=== PATIENT | male | born 1950 | race African-American/Black ===

== ENCOUNTER 2019-10-28 10:25 | Inpatient (IN) | payer OTHER, MEDICARE ==
[2019-10-28] MEDS ORDERED: INSULIN -REGULAR HUMAN 50 UNIT/0.5 ML ML ONE ×2 (11:08→12:42)
[2019-10-28] MEDS ORDERED: NA CHLORIDE 0.9% 1,000 ML ONE ×3 (11:09→17:19)
[2019-10-28 11:10] LABS: Absolute Lymphocytes (CBC) 1.2 K/uL (0.7-4.9); Basophils % 0.9 % (0-1.3); Hematocrit 40.8 % (39.6-49.0); Lymphocytes % 17.6 % (15.3-44.8); MPV 10.1 fL (7.6-11.3); RBC Red Blood Cell Count 4.65 M/uL (4.33-5.43)
[2019-10-28 12:19] LABS: ALT/SGPT 37 U/L (12-78); AST/SGOT 15 U/L (15-37); Albumin 3.2 g/dL (3.4-5.0); Alkaline Phosphatase 72 U/L (45-117); BUN Blood Urea Nitrogen 46 mg/dL (7-18); Bilirubin Direct < 0.1 mg/dL (0-0.2); Bilirubin Total 0.4 mg/dL (0.2-1.0); Glucose Level 738 mg/dL (74-106); Lipase 410 U/L (73-393); Magnesium 2.9 mg/dL (1.8-2.4); Potassium 5.5 mmol/L (3.5-5.1); Protein, Total 7.4 g/dL (6.4-8.2); Sodium Level 134 mmol/L (136-145); Troponin (Emerg Dept Use Only) < 0.02 ng/mL (0.0-0.045)
[2019-10-28 12:21] LABS: Bicarbonate 12 mmol/L (21-32)
[2019-10-28 12:59] LABS: Urine Blood NEGATIVE (NEG); Urine Glucose 2+ (NEG); Urine Protein NEGATIVE (NEG); Urine Specific Gravity 1.005 (1.005-1.030)
[2019-10-28] MEDS ORDERED: INSULIN -REGULAR HUMAN 100 UNIT in NA CHLORIDE 0.9% 100 ML IV SCH (13:00)
--- NOTE | 2019-10-28 13:15 | ER ---
Nurse's Notes [facility] Name: Reid Mccormick Age: 68 yrs Sex: Male : 1950 Arrival Date: 10/28/2019 Time: 10:28 Bed 18 Private MD: Diagnosis: Diabetes mellitus due to underlying condition with ketoacidosis without coma;Acute kidney failure Presentation: 10/28 10:35 Presenting complaint: Patient states: "I wasn't feeling well yesterday just really aa5 tired and my blood sugar was 640 so I don't know what triggered it". pt denies recent illness. 10:35 Transition of care: patient was not received from another setting of care. Onset of aa5 symptoms was October 28, 2019. Risk Assessment: Do you want to hurt yourself or someone else? Patient reports no desire to harm self or others. Initial Sepsis Screen: Does the patient meet any 2 criteria? No. Patient's initial sepsis screen is negative. Does the patient have a suspected source of infection? No. Patient's initial sepsis screen is negative. Care prior to arrival: None. 10:35 Acuity: VINCENT 2 aa5 10:35 Method Of Arrival: Ambulatory aa5 Historical: - Allergies: 10:37 Iodine; aa5 - Home Meds: 15:17 aspirin 81 mg Oral chew 1 tab once daily [Active]; Fish Oil 500 mg oral cpDR [Active]; tw2 magnesium oxide 400 mg Oral cap [Active]; Januvia 50 mg oral tab 1 tabs [Active]; carvedilol 25 mg oral tab 1 tab 2 times per day [Active]; clonidine HCl 0.2 mg Oral tab 1 tab 3 times per day [Active]; losartan 50 mg oral tab 1 tab once daily [Active]; amlodipine 10 mg tab 1 tab once daily [Active]; levothyroxine 50 mcg tab 1 tab once daily [Active]; Vitamin D vitamin d3 125 mcg PO daily Oral [Active]; losartan 50 mg oral tab 1 tab once daily [Active]; hydralazine 25 mg Oral tab 1 tab [Active]; - PMHx: 10:37 Diabetes - NIDDM; Hypertension; aa5 15:17 Hypothyroidism; tw2 - PSHx: 10:37 knee replacement; aa5 - Immunization history:: Flu vaccine is up to date. - Social history:: Smoking status: Patient denies any tobacco usage or history of. - Ebola Screening: : No symptoms or risks identified at this time. Screenin:42 Abuse screen: Denies threats or abuse. Nutritional screening: No deficits noted. tw2 Tuberculosis screening: No symptoms or risk factors identified. Fall Risk None identified. Assessment: 10:40 General: Appears in no apparent distress. Behavior is calm, cooperative, appropriate tw2 for age. General: Smells of ketones. Pain: Denies pain. Neuro: Level of Consciousness is awake, alert, obeys commands, Oriented to person, place, time, situation. Cardiovascular: Heart tones S1 S2 Patient's skin is warm and dry. Respiratory: Airway is patent Respiratory effort is even, unlabored, Respiratory pattern is regular, symmetrical, Breath sounds are clear bilaterally. GI: No signs and/or symptoms were reported involving the gastrointestinal system. Abdomen is round non-distended, obese, Bowel sounds present X 4 quads. : No signs and/or symptoms were reported regarding the genitourinary system. EENT: Reports "dry mouth and lips and i am so thirsty.". 10:40 Musculoskeletal: Range of motion: intact in all extremities. tw2 10:40 Derm: No signs and/or symptoms reported regarding the dermatologic system. tw2 12:20 Reassessment: Patient appears in no apparent distress at this time. No changes from tw2 previously documented assessment. Patient and/or family updated on plan of care and expected duration. Pain level reassessed. Patient is alert, oriented x 3, equal unlabored respirations, skin warm/dry/pink. 13:38 Reassessment: Patient appears in no apparent distress at this time. No changes from tw2 previously documented assessment. Patient and/or family updated on plan of care and expected duration. Pain level reassessed. Patient is alert, oriented x 3, equal unlabored respirations, skin warm/dry/pink. 14:40 Reassessment: Patient appears in no apparent distress at this time. No changes from tw2 previously documented assessment. Patient and/or family updated on plan of care and expected duration. Pain level reassessed. Patient is alert, oriented x 3, equal unlabored respirations, skin warm/dry/pink. 15:46 Reassessment: Patient appears in no apparent distress at this time. No changes from tw2 previously documented assessment. Patient and/or family updated on plan of care and expected duration. Pain level reassessed. Patient is alert, oriented x 3, equal unlabored respirations, skin warm/dry/pink. 10/29 11:55 Reassessment: Called report to PRITESH Maharaj. Information from the SBAR was given. All rb1 questions asked and answered. Vital Signs: 10/28 10:38 BP 132 / 86; Pulse 78; Resp 18 S; Temp 97.9(O); Pulse Ox 98% on R/A; Weight 109.77 kg aa5 (R); Height 6 ft. 1 in. (185.42 cm) (R); Pain 0/10; 11:43 BP 139 / 67; Pulse 75; Resp 19; Pulse Ox 99% on R/A; tw2 12:21 BP 153 / 82; Pulse 72; Resp 17; Pulse Ox 100% on R/A; tw2 13:38 BP 158 / 76; Pulse 77; Resp 17; Pulse Ox 100% on R/A; tw2 14:40 BP 145 / 73; Pulse 76; Resp 17; Pulse Ox 99% on R/A; tw2 15:44 BP 149 / 65; Pulse 72; Resp 17; Pulse Ox 99% on R/A; tw2 10:38 Body Mass Index 31.93 (109.77 kg, 185.42 cm) aa5 ED Course: 10:28 Patient arrived in ED. ag5 10:36 Arm band placed on. aa5 10:38 Triage completed. aa5 10:40 Margareth Mesa RN is Primary Nurse. tw2 10:40 Arnoldo Cleveland PA is PHCP. cp 10:40 Jose Maria Flynn MD is Attending Physician. cp 10:40 Bed in low position. Call light in reach. Adult w/ patient. campus monitor on. Pulse tw2 ox on. NIBP on. 10:58 Initial lab(s) drawn, by me, sent to lab. Inserted saline lock: 18 gauge in right dh3 forearm, using aseptic technique. Blood collected. 11:26 Lab(s) recollected, by me, sent to lab[facility] 11:54 EKG done, by educational technician. reviewed by Jose Maria Flynn MD. tc 12:23 Notified Nurse Practitioner and/or Physician Embroidery Finisher of a critical lab result(s), CO2 hb 12, GLUC 738. 12:47 Urine collected: clean catch specimen, clear. dh3 13:07 Inserted saline lock: 18 gauge in left antecubital area, using aseptic technique. 3 13:13 Anjel Angelo MD is Hospitalizing Provider. cp 15:46 No provider procedures requiring assistance completed. Patient admitted, IV remains in tw2 place. 10/29 06:46 Primary Nurse role handed off by Margareth Mesa RN eb 11:53 Ana Luisa Connelly, PRITESH is Primary Nurse. rb1 11:55 No provider procedures requiring assistance completed. rb1 12:40 Patient admitted, IV remains in place. rb1 Administered Medications: 10/28 11:12 Drug: NS 0.9% 500 ml Route: IV; Rate: bolus; Site: right hand; tw2 12:07 Follow up: Response: No adverse reaction; IV Status: Completed infusion; IV Intake: tw2 500ml 11:12 Drug: Insulin Regular Human 10 units {Co-Signature: tw2 (Margareth Mesa RN).} Route: IVP; hb Site: right hand; 12:06 Follow up: Response: No adverse reaction; Blood sugar is unchanged tw2 12:07 Drug: NS 0.9% 500 ml Route: IV; Rate: 500 ml/hr; Site: right hand; tw2 12:49 Follow up: Rate change bolus; per HUSSAIN Adamson vo at this time. tw2 15:48 Follow up: IV Status: Completed infusion; IV Intake: 500ml tw2 12:45 Drug: Insulin Regular Human 10 units {Co-Signature: tw2 (Margareth Mesa RN).} Route: IVP; aj1 Site: right hand; 13:36 Follow up: Response: No adverse reaction; Blood sugar is unchanged tw2 12:46 Drug: NS 0.9% 1000 ml Route: IV; Rate: 250 ml/hr; Site: right hand; tw2 15:47 Follow up: IV Status: Infusion continued upon admission tw2 13:16 Drug: Insulin Drip - (Insulin Regular Human 100 units, NS 0.9% 100 ml) {Co-Signature: tw aj (Cat Roberts RN).} Route: IV; Rate: 10 units/hr; Site: right hand; 15:47 Follow up: IV Status: Infusion continued upon admission tw2 Point of Care Testing: Blood Glucose: 13:37 Blood Glucose: High (>450 mg/dL); tw2 10:38 High > 500mg/dL aa5 13:37 glucose level drawn at this time and sent to lab tw2 Ranges: Intake: 12:07 IV: 500ml; Total: 500ml. tw2 15:48 IV: 500ml; Total: 1000ml. tw2 Outcome: 13:14 Decision to Hospitalize by Provider. cp 15:46 Admitted to ER Hold. Please see [facility] for further documentation. tw2 15:46 Condition: stable 15:46 Instructed on the need for admit. 10/29 12:40 Admitted to Med/surg accompanied by tech, family with patient, via stretcher, room 207, rb1 with chart, Report called to PRITESH Maharaj Condition: stable Instructed on the need for admit. 12:44 Patient left the ED. hb Signatures: Cat Roberts, RN RN aj1 Ciera Simental, RN RN aa5 Carolina Barry, jira administrator EKG Ttc Arnoldo Cleveland PA PA cp Ana Luisa Connelly, RN RN rb1 Sondra Boykin RN RN Margareth Mesa, RN RN tw2 Selin Marin 3 Anita Licona Ajare [facility] Margareth Mesa RN tw2 Cat Roberts RN aj1 Corrections: (The following items were deleted from the chart) 10/28 13:04 10:40 EENT: Reports "dry mouth and lips and i am so thirsty.". tw2 tw2
--- NOTE | 2019-10-28 13:15 | EDPHYS ---
Physician Documentation [facility] Name: Reid Mccormick Age: 68 yrs Sex: Male : 1950 Arrival Date: 10/28/2019 Time: 10:28 Bed 18 Private MD: ED Physician Jose Maria Flynn HPI: 10/28 10:51 This 68 yrs old Black Male presents to ER via Ambulatory with complaints of High Blood cp Sugar. 10:51 The patient or guardian reports generalized fatigue, hyperglycemia, that was cp potentially precipitated by no particular event. Onset: The symptoms/episode began/occurred yesterday. Associated signs and symptoms: Pertinent negatives: chest pain, abdominal pain, fever. Current symptoms: In the emergency department the patient's symptoms are unchanged from the initial presentation, despite home interventions. The patient has been recently seen by a physician: Dr. Singer yesterday, with similar presenting complaints, lab tests were done, and was sent to the [facility] Emergency Department for further evaluation. Historical: - Allergies: 10:37 Iodine; aa5 - Home Meds: 15:17 aspirin 81 mg Oral chew 1 tab once daily [Active]; Fish Oil 500 mg oral cpDR [Active]; tw2 magnesium oxide 400 mg Oral cap [Active]; Januvia 50 mg oral tab 1 tabs [Active]; carvedilol 25 mg oral tab 1 tab 2 times per day [Active]; clonidine HCl 0.2 mg Oral tab 1 tab 3 times per day [Active]; losartan 50 mg oral tab 1 tab once daily [Active]; amlodipine 10 mg tab 1 tab once daily [Active]; levothyroxine 50 mcg tab 1 tab once daily [Active]; Vitamin D vitamin d3 125 mcg PO daily Oral [Active]; losartan 50 mg oral tab 1 tab once daily [Active]; hydralazine 25 mg Oral tab 1 tab [Active]; - PMHx: 10:37 Diabetes - NIDDM; Hypertension; aa5 15:17 Hypothyroidism; tw2 - PSHx: 10:37 knee replacement; aa5 - Immunization history:: Flu vaccine is up to date. - Social history:: Smoking status: Patient denies any tobacco usage or history of. - Ebola Screening: : No symptoms or risks identified at this time. ROS: 10:55 Constitutional: Positive for fatigue, Negative for body aches, chills, fever, poor PO cp intake. 10:55 Eyes: Negative for injury, pain, redness, and discharge. cp 10:55 ENT: Negative for drainage from ear(s), ear pain, sore throat, difficulty swallowing, difficulty handling secretions. 10:55 Cardiovascular: Negative for chest pain, edema, palpitations. 10:55 Respiratory: Negative for cough, shortness of breath, wheezing. 10:55 Abdomen/GI: Negative for abdominal pain, vomiting, diarrhea, constipation, black/tarry stool, rectal bleeding. 10:55 : Negative for urinary symptoms, penile discharge, testicular pain 10:55 Skin: Negative for rash. 10:55 Neuro: Negative for altered mental status, headache, weakness. 10:55 All other systems are negative. Exam: 11:10 Constitutional: The patient appears in no acute distress, alert, awake, cp non-diaphoretic, non-toxic, well developed, well nourished. 11:10 Head/Face: Normocephalic, atraumatic. cp 11:10 Eyes: Pupils equal round and reactive to light, extra-ocular motions intact. Lids and cp lashes normal. Conjunctiva and sclera are non-icteric and not injected. Cornea within normal limits. Periorbital areas with no swelling, redness, or edema. ENT: Nares patent. No nasal discharge, no septal abnormalities noted. Tympanic membranes are normal and external auditory canals are clear. Oropharynx with no redness, swelling, or masses, exudates, or evidence of obstruction, uvula midline. Mucous membranes moist. Chest/axilla: Normal chest wall appearance and motion. Nontender with no deformity. No lesions are appreciated. Cardiovascular: Regular rate and rhythm with a normal S1 and S2. No gallops, murmurs, or rubs. Normal PMI, no JVD. No pulse deficits. Respiratory: Lungs have equal breath sounds bilaterally, clear to auscultation and percussion. No rales, rhonchi or wheezes noted. No increased work of breathing, no retractions or nasal flaring. Abdomen/GI: Soft, non-tender, with normal bowel sounds. No distension or tympany. No guarding or rebound. No evidence of tenderness throughout. Skin: Warm, dry with normal turgor. Normal color with no rashes, no lesions, and no evidence of cellulitis. Neuro: Awake and alert, GCS 15, oriented to person, place, time, and situation. Cranial nerves II-XII grossly intact. Motor strength 5/5 in all extremities. Sensory grossly intact. Cerebellar exam normal. Normal gait. 12:04 ECG was reviewed by the Attending Physician. Vital Signs: 10:38 BP 132 / 86; Pulse 78; Resp 18 S; Temp 97.9(O); Pulse Ox 98% on R/A; Weight 109.77 kg aa5 (R); Height 6 ft. 1 in. (185.42 cm) (R); Pain 0/10; 11:43 BP 139 / 67; Pulse 75; Resp 19; Pulse Ox 99% on R/A; tw2 12:21 BP 153 / 82; Pulse 72; Resp 17; Pulse Ox 100% on R/A; tw2 13:38 BP 158 / 76; Pulse 77; Resp 17; Pulse Ox 100% on R/A; tw2 14:40 BP 145 / 73; Pulse 76; Resp 17; Pulse Ox 99% on R/A; tw2 15:44 BP 149 / 65; Pulse 72; Resp 17; Pulse Ox 99% on R/A; tw2 10:38 Body Mass Index 31.93 (109.77 kg, 185.42 cm) aa5 MDM: 10:42 Patient medically screened. 13:00 Data reviewed: vital signs, nurses notes, lab test result(s), EKG. 13:00 Test interpretation: by ED physician or midlevel provider: ECG. Counseling: I had a detailed discussion with the patient and/or guardian regarding: the historical points, exam findings, and any diagnostic results supporting the discharge/admit diagnosis, lab results, the need for further work-up and treatment in the hospital. Physician consultation: Anjel Angelo MD was called at 12:45, was contacted at 12:45, regarding admission, to the ICU, patient's condition. 10/28 10:47 Order name: Glucose, Ancillary Testing; Complete Time: 10:52 EDMS 10/28 10:52 Interpretation: Abnormal: GLUC,ANCIL > 500. 10/28 10:50 Order name: Basic Metabolic Panel; Complete Time: 12:23 cp 10/28 10:50 Order name: CBC with Diff; Complete Time: 11:29 10/28 11:30 Interpretation: Normal except: HGB 13.4; RDW 16.3; BETTY% 74.2. cp 10/28 10:50 Order name: LFT's; Complete Time: 12:23 cp 10/28 10:50 Order name: Magnesium; Complete Time: 12:23 cp 10/28 10:50 Order name: Troponin (emerg Dept Use Only); Complete Time: 12:23 cp 10/28 10:50 Order name: Lipase; Complete Time: 12:23 cp 10/28 10:50 Order name: Ketone, Serum; Complete Time: 12:23 cp 10/28 12:03 Interpretation: Abnormal: ACET SMALL. cp 10/28 10:50 Order name: Influenza Screen (a \T\ B); Complete Time: 11:29 cp 10/28 12:05 Order name: Glucose 2 10/28 12:16 Order name: Glucose, Ancillary Testing; Complete Time: 12:20 EDMN 10/28 12:21 Interpretation: Reviewed. 10/28 12:36 Order name: Urine Dipstick--Ancillary (enter results) 10/28 13:36 Order name: Glucose 2 10/28 13:50 Order name: Glucose, Ancillary Testing EDMN 10/28 13:55 Order name: Basic Metabolic Panel EDMN 10/28 13:55 Order name: Basic Metabolic Panel EDMN 10/28 13:55 Order name: Basic Metabolic Panel EDMN 10/28 13:55 Order name: Basic Metabolic Panel EDMN 10/28 13:55 Order name: CBC with Automated Diff EDMS 10/28 13:55 Order name: CBC with Automated Diff EDMS 10/28 13:55 Order name: CBC with Automated Diff EDMS 10/28 13:55 Order name: CBC with Automated Diff EDMS 10/28 13:55 Order name: Lipid Profile EDMS 10/28 13:55 Order name: Lipid Profile EDMS 10/28 13:55 Order name: Magnesium EDMS 10/28 13:55 Order name: Magnesium EDMS 10/28 13:55 Order name: Magnesium EDMS 10/28 13:55 Order name: Magnesium EDMS 10/28 13:57 Order name: Blood Culture EDMN 10/28 15:33 Order name: Glucose, Ancillary Testing EDMN 10/28 10:40 Order name: Accucheck Blood Glucose; Complete Time: 11:05 cp 10/28 10:50 Order name: EKG; Complete Time: 10:50 cp 10/28 10:50 Order name: Cardiac monitoring; Complete Time: 11:09 cp 10/28 13:55 Order name: CONS Diabetic Education Consul EDMN 10/28 13:55 Order name: CONS Pharmacy Consult EDMN 10/28 13:55 Order name: NPO EDMN 10/28 16:35 Order name: Glucose, Ancillary Testing EDMN 10/28 17:10 Order name: Hemoglobin A1c EDMN 10/28 17:28 Order name: Glucose, Ancillary Testing EDMN 10/28 17:42 Order name: Basic Metabolic Panel EDMN 10/28 18:27 Order name: Glucose, Ancillary Testing EDMN 10/28 19:27 Order name: Glucose, Ancillary Testing EDMN 10/28 20:34 Order name: Glucose, Ancillary Testing EDMN 10/28 21:46 Order name: Glucose, Ancillary Testing EDMN 10/28 23:37 Order name: Glucose, Ancillary Testing [facility] 10/28 23:40 Order name: Glucose, Ancillary Testing [facility] 10/29 00:44 Order name: Glucose, Ancillary Testing [facility] 10/29 01:41 Order name: Glucose, Ancillary Testing EDMN 10/29 02:42 Order name: Glucose, Ancillary Testing EDMN 10/29 03:50 Order name: Glucose, Ancillary Testing [facility] 10/29 04:47 Order name: Glucose, Ancillary Testing [facility] 10/29 05:42 Order name: Glucose, Ancillary Testing [facility] 10/29 06:51 Order name: Glucose, Ancillary Testing [facility] 10/29 07:51 Order name: LDL, Direct EDMN 10/29 08:06 Order name: Glucose, Ancillary Testing [facility] 10/29 11:47 Order name: Glucose, Ancillary Testing EDMN 10/28 10:50 Order name: EKG - Nurse/Tech; Complete Time: 12:49 cp 10/28 10:50 Order name: IV Saline Lock; Complete Time: 11:04 cp 10/28 10:50 Order name: Labs collected and sent; Complete Time: 11:04 cp 10/28 10:50 Order name: O2 Per Protocol; Complete Time: 11:04 cp 10/28 10:50 Order name: O2 Sat Monitoring; Complete Time: 11:05 cp EC:04 Rate is 75 beats/min. Rhythm is regular. VT interval is prolonged at 204 msec. QRS cp interval is prolonged at 140 msec. QT interval is normal. T waves are Inverted in leads aVL, aVR. Interpreted by me. Reviewed by me. Administered Medications: 11:12 Drug: NS 0.9% 500 ml Route: IV; Rate: bolus; Site: right hand; tw2 12:07 Follow up: Response: No adverse reaction; IV Status: Completed infusion; IV Intake: tw2 500ml 11:12 Drug: Insulin Regular Human 10 units {Co-Signature: tw2 (Margareth Mesa RN).} Route: IVP; hb Site: right hand; 12:06 Follow up: Response: No adverse reaction; Blood sugar is unchanged tw2 12:07 Drug: NS 0.9% 500 ml Route: IV; Rate: 500 ml/hr; Site: right hand; tw2 12:49 Follow up: Rate change bolus; per HUSSAIN Adamson vo at this time. tw2 15:48 Follow up: IV Status: Completed infusion; IV Intake: 500ml tw2 12:45 Drug: Insulin Regular Human 10 units {Co-Signature: tw2 (Margareth Mesa RN).} Route: IVP; aj1 Site: right hand; 13:36 Follow up: Response: No adverse reaction; Blood sugar is unchanged tw2 12:46 Drug: NS 0.9% 1000 ml Route: IV; Rate: 250 ml/hr; Site: right hand; tw2 15:47 Follow up: IV Status: Infusion continued upon admission tw2 13:16 Drug: Insulin Drip - (Insulin Regular Human 100 units, NS 0.9% 100 ml) {Co-Signature: tw2 aj1 (Cat Roberts RN).} Route: IV; Rate: 10 units/hr; Site: right hand; 15:47 Follow up: IV Status: Infusion continued upon admission tw2 Point of Care Testing: Blood Glucose: 13:37 Blood Glucose: High (>450 mg/dL); tw2 10:38 High > 500mg/dL aa5 13:37 glucose level drawn at this time and sent to lab tw2 Ranges: Critical Glucose Levels:Adult <50 mg/dl or >400 mg/dl <40 mg/dl or >180 mg/dl Disposition: 10/29 16:30 Co-signature as Attending Physician, Jose Maria Flynn MD I agree with the assessment and kdr plan of care. Disposition: 10/28/19 13:14 Hospitalization ordered by Anjel Angelo for Inpatient Admission. 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 - Bed requested for Telemetry/MedSurg (Inpatient). - Status is Inpatient Admission. hb - Condition is Stable. - Problem is new. - Symptoms have improved. UTI on Admission? No Signatures: Dispatcher [employer] EDMS Cat Roberts, PRITESH RN aj1 Jose Maria Flynn MD MD [facility] Ciera Simental RN RN aa5 Arnoldo Cleveland PA PA cp Sondra Boykin RN RN Margareth Mesa RN RN tw2 Og Garcia RN RN ja1 Anita Licona RN tw2 Cat Roberts RN aj1 Corrections: (The following items were deleted from the chart) 10/28 13:24 13:14 Hospitalization Ordered by Anjel Angelo MD for Inpatient Admission. Preliminary eb diagnosis is Diabetes mellitus due to underlying condition with ketoacidosis without coma; Acute kidney failure. Bed requested for Intensive Care Unit. Status is Inpatient Admission. Condition is Stable. Problem is new. Symptoms have improved. UTI on Admission? No. cp 17:34 13:24 10/28/2019 13:14 Hospitalization Ordered by Anjel Angelo MD for Inpatient eb Admission. 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 Bed requested for Intensive Care Unit. Status is Inpatient Admission. Condition is Stable. Problem is new. Symptoms have improved. UTI on Admission? No. eb 10/29 11:17 10/28 17:34 10/28/2019 13:14 Hospitalization Ordered by Anjel Angelo MD for Inpatient eb Admission. 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 Bed requested for [facility] ER HOLD. Status is Inpatient Admission. Condition is Stable. Problem is new. Symptoms have improved. UTI on Admission? No. eb 10/29 11:22 11:17 10/28/2019 13:14 Hospitalization Ordered by Anjel Angelo MD for Inpatient ja1 Admission. 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 Bed requested for Telemetry/MedSurg (Inpatient). Status is Inpatient Admission. Condition is Stable. Problem is new. Symptoms have improved. UTI on Admission? No. eb 12:44 11:22 10/28/2019 13:14 Hospitalization Ordered by Anjel Angelo MD for Inpatient hb Admission. 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 Bed requested for Telemetry/MedSurg (Inpatient). Status is Inpatient Admission. Condition is Stable. Problem is new. Symptoms have improved. UTI on Admission? No. ja1
[2019-10-28] MEDS ORDERED: ONDANSETRON 4 MG/2 ML VIAL IV PRN (13:46)
[2019-10-28] MEDS ORDERED: NA CHLORIDE 0.9% 1,000 ML IV ONE (13:46)
[2019-10-28] MEDS ORDERED: D5 0.45 NS 1,000 ML IV SCH (14:00)
[2019-10-28] MEDS: NA CHLORIDE 0.9% 1,000 ML IV SCH ×3 (14:00→19:42)
--- NOTE | 2019-10-28 14:31 | EKG ---
Test Date: 2019-10-28 Test Time: 11:48:05 Steam Shovel Runner: KIM MEASUREMENT RESULTS: Intervals: Rate: 75 IN: 204 QRSD: 140 QT: 424 QTc: 473 [employer] Sleep: P: 81 IN: 204 QRS: -78 T: 92 INTERPRETIVE STATEMENTS: Normal sinus rhythm Left axis deviation Intraventricular conduction delay Abnormal ECG No previous ECG available for comparison Electronically Signed On 10-28-19 14:29:39 LOG DECKMAN by Rene Snell
--- NOTE | 2019-10-28 14:45 | P.HP ---
Certification for Inpatient With expected LOS: <2 Midnights Practitioner: I am a practitioner with admitting privileges, knowledge of patient current condition, hospital course, and medical plan of care. Services: Services provided to patient in accordance with Admission requirements found in Title 42 Section 412.3 of the Code of Federal Regulations Patient History Date of Service: 10/28/19 Reason for admission: Hyperglycemia History of Present Illness: Mr. Mccormick is a 68-year-old male with a history of diabetes mellitus and hypertension who was seen by his PCP yesterday for generalized weakness. Patient's blood was drawn at that time and this morning, he was called by his PCP to present to the ER for abnormal lab. Patient reports generalized weakness and polyuria for the past few weeks. He denies any chest pain or shortness of breath. If he does not check his blood glucose at home. He is on oral hypoglycemic agents. Allergies iodine Allergy (Verified 10/28/19 12:57) UNK Home Medications: Amlodipine [Norvasc] 10 mg PO 10/28/19 Aspirin [Adult Aspirin Regimen] 81 mg PO 10/28/19 Cholecalciferol (Vitamin D3) [Vitamin D3] 125 mcg PO 10/28/19 Clonidine HCl [Catapres*] 0.2 mg PO 10/28/19 Hydralazine [Apresoline*] 10/28/19 Levothyroxine [Synthroid] 50 mcg PO 10/28/19 Losartan Potassium [Cozaar] 50 mg PO DAILY 10/28/19 Magnesium Oxide 400 mg PO 10/28/19 [place]-3/Dha/Epa/Fish Oil [Fish Oil 500 mg Softgel] 10/28/19 Sitagliptin Phosphate [Januvia] 10/28/19 carvediloL [Carvedilol] 10/28/19 carvediloL [Carvedilol] PO BID 6AM 6PM 10/28/19 - Past Medical/Surgical History Diabetic: Yes -: Hypertension -: Diabetes Mellitus -: Hypothyroidism -: Hyperlipidemia -: R knee replacement - Family History Mother -: Hypertension, Diabetes - Social History Smoking Status: Never smoker Alcohol use: No CD- Drugs: No Review of Systems 10-point ROS is otherwise unremarkable General: Weakness, As per HPI Genitourinary: As per HPI Physical Examination - Physical Exam General: Alert, In no apparent distress HEENT: Atraumatic, PERRLA, Other (Dry oral mucosa), EOMI, Sclerae nonicteric Neck: Supple, 2+ carotid pulse no bruit, No LAD, Without JVD or thyroid abnormality Respiratory: Clear to auscultation bilaterally, Normal air movement Cardiovascular: Regular rate/rhythm, Normal S1 S2 Gastrointestinal: Normal bowel sounds, No tenderness Musculoskeletal: No tenderness Integumentary: No rashes Neurological: Normal gait, Normal speech, Normal strength at 5/5 x4 extr, Normal tone, Normal affect Lymphatics: No axilla or inguinal lymphadenopathy - Studies Laboratory Data (last 24 hrs) 10/28/19 13:37: Glucose 546 H* 10/28/19 12:05: Glucose 714 H* 10/28/19 11:26: Sodium 134 L, Potassium 5.5 H, BUN 46 H, Creatinine 2.00 H, Glucose 738 H*, Magnesium 2.9 H, Total Bilirubin 0.4, AST 15, ALT 37, Alkaline Phosphatase 72, Lipase 410 H 10/28/19 10:58: WBC 6.8, Hgb 13.4 L, Hct 40.8, Plt Count 172 Microbiology Data (last 24 hrs): 10/28/19 10:58 Nasopharnyx Influenza Type A Antigen Screen - Final 10/28/19 10:58 Nasopharnyx Influenza Type B Antigen Screen - Final Assessment and Plan - Plan Mr. Mccormick a 62-year-old male with a history of diabetes and hypertension presenting with DKA. #Mild diabetic ketoacidosis-secondary to probably uncontrolled diabetes. Patient is acidotic with CO2 12 and calculated anion gap is 20. 3+ urine ketones. Check hemoglobin A1c. -DKA protocol has been initiated. Aggressive IV hydration. -IV insulin. BG q.1 hr, BMP q.4 hr. -continue IV NS and monitor BG closely. Transition to D51/2 once BG <200 - ill transition appropriately to subcutaneous insulin once AG is closed. -Maintain NPO;correct electrolytes -Admit to ICU -he will benefit from agricultural extension educator. Compliance with that diet and medication discussed the patient #Acute kidney injury-prerenal azotemia secondary to hypovolemia. Patient is in DKA. He denies any prior history of kidney disease. -will continue aggressive IV hydration. Trend creatinine. -minimize the use of nephrotoxins. -monitor urine output. #Hypertension-blood pressure is currently stable. -recently initiated on diuretics due to uncontrolled blood pressure. -monitor blood pressure closely. #AG metabolic acidosis-secondary to DKA. Monitor bicarb. -will treat underlyng illness. #Hyperlipidemia- check lipid #Hypothyrodisim- will resume oral synthroid once able to tolerate po. DVT prophylaxis-SCD Patient is full code. Discharge Plan: Home - Advance Directives Does patient have a Living Will: No Does patient have a Durable POA for Healthcare: No
[2019-10-28 15:16] LABS: Potassium 4.9 mmol/L (3.5-5.1)
[2019-10-28 17:42] LABS: Potassium 4.6 mmol/L (3.5-5.1)
[2019-10-28] MEDS ORDERED: D50W 25 GM/50 ML SYRINGE/VIAL IV PRN (17:57)
[2019-10-28] MEDS ORDERED: GLUCAGON 1 MG/VIAL IM PRN (17:57)
[2019-10-28] MEDS: INSULIN GLARGINE 100 UNITS/ML SQ SCH ×2 (17:58→19:48)
[2019-10-28] MEDS ORDERED: INSULIN GLARGINE 100 UNITS/ML SQ ONE (19:33)
[2019-10-29 02:37] LABS: Potassium 3.8 mmol/L (3.5-5.1)
[2019-10-29] MEDS: NA CHLORIDE 0.9% 1,000 ML IV SCH ×4 (03:20→20:56)
[2019-10-29] MEDS ORDERED: NA CHLORIDE 0.9% 1,000 ML ONE ×2 (03:37→08:05)
[2019-10-29] MEDS ORDERED: GLUCAGON 1 MG/VIAL IM PRN (04:45)
[2019-10-29] MEDS ORDERED: D50W 25 GM/50 ML SYRINGE/VIAL IV PRN (04:45)
[2019-10-29 07:00] LABS: Absolute Lymphocytes (CBC) 1.6 K/uL (0.7-4.9); Basophils % 1.1 % (0-1.3); Hematocrit 36.2 % (39.6-49.0); Lymphocytes % 25.3 % (15.3-44.8); MPV 9.5 fL (7.6-11.3)
[2019-10-29 07:29] LABS: HDL Cholesterol 40 mg/dL (40-60); LDL Cholesterol, Calculated ND (<130); Magnesium 2.6 mg/dL (1.8-2.4)
[2019-10-29] MEDS ORDERED: INSULIN -REGULAR HUMAN 50 UNIT/0.5 ML ML SQ SCH (07:30)
[2019-10-29] MEDS: INSULIN -REGULAR HUMAN 50 UNIT/0.5 ML ML SQ SCH ×4 (07:30→20:53)
[2019-10-29 07:45] LABS: LDL, Direct 67 mg/dL (100-129)
[2019-10-29] MEDS ORDERED: INSULIN -REGULAR HUMAN 50 UNIT/0.5 ML ML ONE ×2 (08:04→11:45)
[2019-10-29] MEDS ORDERED: POTASSIUM CL SA 10 MEQ TAB PO ONE ×2 (08:04→09:00)
[2019-10-29] MEDS ORDERED: ENOXAPARIN 40 MG/0.4 ML SQ ONE (08:05)
[2019-10-29] MEDS: ENOXAPARIN 40 MG/0.4 ML SQ SCH (08:10)
--- NOTE | 2019-10-29 09:44 | P.PN ---
Subjective Date of Service: 10/29/19 Chief Complaint: Hyperglycemia Subjective: Improving (Patient is doing well no new complaints no nausea vomiting he still little acidotic blood sugars are still elevated) Review of Systems 10-point ROS is otherwise unremarkable Physical Examination - Vital Signs Temperature: 98.4 F Blood Pressure: 160/77 Pulse: 67 Respirations: 18 Pulse Ox (%): 100 - Physical Exam General: Alert, Oriented x3 Neck: Supple Respiratory: Clear to auscultation bilaterally Cardiovascular: No edema, Regular rate/rhythm - Studies Laboratory Data (last 24 hrs) 10/28/19 13:37: Glucose 546 H* 10/28/19 12:05: Glucose 714 H* 10/28/19 11:26: Sodium 134 L, Potassium 5.5 H, BUN 46 H, Creatinine 2.00 H, Glucose 738 H*, Magnesium 2.9 H, Total Bilirubin 0.4, AST 15, ALT 37, Alkaline Phosphatase 72, Lipase 410 H 10/28/19 10:58: WBC 6.8, Hgb 13.4 L, Hct 40.8, Plt Count 172 Microbiology Data (last 24 hrs): 10/28/19 10:58 Nasopharnyx Influenza Type A Antigen Screen - Final 10/28/19 10:58 Nasopharnyx Influenza Type B Antigen Screen - Final Assessment & Plan - Problems (Diagnosis) (1) DKA (diabetic ketoacidoses) Current Visit: Yes Status: Acute Plan: Patient is 68 years of age admitted with new onset of diabetic ketoacidosis very high sugar as only on Januvia bicarbonate is a little low there is no evidence of sepsis see clinically feeling better plan to admit possible discharge in the morning may need insulin patient is already started on Lantus patient will require insulin Qualifiers: Diabetes mellitus type: type 2 (2) Hyperlipidemia Current Visit: Yes Status: Acute Plan: Patient's triglyceride levels are oral 1000 elevated cholesterol start on a statin and gemfibrozil may need insulin therapy Qualifiers: Hyperlipidemia type: mixed hyperlipidemia Qualified Code(s): E78.2 - Mixed hyperlipidemia Plan to discharge in: 24 Hours
[2019-10-29] MEDS: gemfibroziL 600 MG TAB PO SCH ×2 (14:03→20:54)
[2019-10-29] MEDS: ATORVASTATIN 20 MG TAB PO SCH (20:54)
[2019-10-29] MEDS ORDERED: INSULIN GLARGINE 100 UNITS/ML SQ SCH ×2 (21:00)
[2019-10-30 03:18] LABS: CKMB Creatine Kinase MB 2.7 ng/mL (0.3-3.6); Creatine Phosphokinase 284 U/L (39-308); Troponin I < 0.02 ng/mL (0.0-0.045)
[2019-10-30 05:55] LABS: Absolute Lymphocytes (CBC) 1.4 K/uL (0.7-4.9)
[2019-10-30 05:57] LABS: Basophils % 0.6 % (0-1.3); Hematocrit 36.8 % (39.6-49.0); Lymphocytes % 31.5 % (15.3-44.8); MPV 9.8 fL (7.6-11.3); RBC Red Blood Cell Count 4.27 M/uL (4.33-5.43)
[2019-10-30 06:16] LABS: HDL Cholesterol 28 mg/dL (40-60); LDL Cholesterol, Calculated ND (<130); Magnesium 2.2 mg/dL (1.8-2.4); Potassium 4.1 mmol/L (3.5-5.1)
[2019-10-30 06:27] LABS: LDL, Direct 71 mg/dL (100-129)
[2019-10-30] MEDS: INSULIN -REGULAR HUMAN 50 UNIT/0.5 ML ML SQ SCH (07:30)
[2019-10-30] MEDS: LOSARTAN POTASSIUM 50 MG TABLET PO SCH (08:19)
[2019-10-30] MEDS ORDERED: INSULIN -REGULAR HUMAN 50 UNIT/0.5 ML ML SQ SCH ×2 (08:22→11:30)
[2019-10-30] MEDS: ENOXAPARIN 40 MG/0.4 ML SQ SCH (08:25)
[2019-10-30] MEDS: gemfibroziL 600 MG TAB PO SCH ×2 (08:26→20:35)
[2019-10-30] MEDS ORDERED: D50W 25 GM/50 ML SYRINGE/VIAL IV PRN ×4 (10:07→13:17)
[2019-10-30] MEDS ORDERED: GLUCAGON 1 MG/VIAL IM PRN ×4 (10:07→13:17)
--- NOTE | 2019-10-30 10:18 | P.PN ---
Subjective Date of Service: 10/30/19 Chief Complaint: Hyperglycemia and hyperlipidemia Subjective: Improving (Patient is improving he denies any complaints is weaknesses all denies any nausea vomiting or abdominal pain patient has had insulin before) Review of Systems Unremarkable Physical Examination - Vital Signs Temperature: 98.4 F Blood Pressure: 193/104 Pulse: 66 Respirations: 18 Pulse Ox (%): 98 - Physical Exam General: Alert, In no apparent distress, Oriented x3 HEENT: Atraumatic Neck: Supple Respiratory: Clear to auscultation bilaterally Cardiovascular: No edema, Normal pulses, Regular rate/rhythm Gastrointestinal: Normal bowel sounds, Soft and benign, Non-distended Assessment & Plan - Problems (Diagnosis) (1) DKA (diabetic ketoacidoses) Current Visit: Yes Status: Acute Plan: Still has hyperglycemia mild acidosis increase Lantus and short-acting insulin will need to contact his exceptional student education teacher tomorrow patient is eager to go home patient has chronic renal failure patient is probably going to need at least 100 mg of insulin prior to discharge 40 started lispro 20 mg 3 times a day in addition to Lantus Qualifiers: Diabetes mellitus type: type 2 (2) Hyperlipidemia Current Visit: Yes Status: Acute Plan: Patient's triglyceride level has increased will need to increase his insulin patient is already on gemfibrozil lipase was elevated Qualifiers: Hyperlipidemia type: mixed hyperlipidemia Qualified Code(s): E78.2 - Mixed hyperlipidemia (3) Hypertension Current Visit: Yes Status: Acute Plan: Patient has severe uncontrolled hypertension multiple drugs will need to resume all other
--- NOTE | 2019-10-30 11:59 | EKG ---
Test Date: 2019-10-30 Test Time: 01:24:32 Electromechanisms Design Drafter: RT Root MEASUREMENT RESULTS: Intervals: Rate: 71 MO: 198 QRSD: 154 QT: 410 QTc: 445 Marshall: P: 78 MO: 198 QRS: -73 T: 25 INTERPRETIVE STATEMENTS: Normal sinus rhythm Intraventricular conduction delay Abnormal ECG Compared to ECG 10/28/2019 11:48:05 Left-axis deviation no longer present Electronically Signed On 10-30-19 11:58:39 FOLD SKIVER by Rene Snell
[2019-10-30] MEDS ORDERED: INSULIN LISPRO 100 UNIT/1 ML SQ SCH (12:00)
[2019-10-30] MEDS ORDERED: INSULIN -REGULAR HUMAN 100 UNIT in NA CHLORIDE 0.9% 100 ML IV SCH (13:14)
[2019-10-30 13:17] VITALS: BMI 33.0
[2019-10-30] MEDS: INSULIN -REGULAR HUMAN 100 UNIT in NA CHLORIDE 0.9% 100 ML IV SCH ×2 (14:12→21:27)
[2019-10-30] MEDS: HYDRALAZINE HCL 25 MG TABLET PO SCH ×2 (14:52→20:34)
--- NOTE | 2019-10-30 17:20 | CON ---
Identification: 68-year-old man History Of Present Illness: Mr. Mccormick is 68. He was in his usual state of health, not having any s ymptoms, but he measures his blood sugar and noted they were as high as 700 at home, so we came here. His blood sugars have been that high and steadily coming down. While he has been on telemetry, he has had some runs of ventricular arrhythmia, has accelerated idioventricular rhythm going just about 100 beats per minute, QRS changes. No P waves. So it seems in every way to be accelerated idioventr icular rhythm. The patient is asymptomatic when it happens. He has had spells that last several min utes. He has dyslipidemia, but is not under treatment. He sees Dr. Montano and gets a Holter monito r for couple of years. The patient does not think he has had a stress test. He thinks he may have h ad an echo before. He denies any chest pain. He does not use tobacco, alcohol, or illegal drugs. N o history of myocardial infarction or stroke. He has diabetes and hypertension and untreated dyslipi demia. Physical Examination: Vital Signs: 6 feet 1 inch, 242 pounds. General: Alert, oriented, pleasant, cooperative, not in distress. Lungs: Clear. Heart: Regular rate and rhythm. No murmur, rub, or gallop. Neck: Carotids, no bruit. Abdomen: Soft. Extremities: Palpable pulses. No edema. Laboratory Data: Troponin is less than 0.02. His triglycerides are 1900. His total cholesterol 262 , although direct LDL is only 71, so it is fairly remarkable. Assessment And Plan: It looks like all of his cholesterol is from triglycerides and in turn that cou ld be all from such poor control of his diabetes. Before starting a statin, I would recommend that yunier eng have his diabetes get under control, follow a good diet and recheck it. Because of the idioventric ular rhythm, I think we need to have him do a stress test and echo to make sure there is not a lot of structural heart disease could be something we see does from having such poor control of his diabete s. We will do those tomorrow. Thank you very much for your kind referral of Mr. Mccormick. I will follow him with you. CLIFF Voice ID: [id number] Report ID: [id number]
[2019-10-30] MEDS: carvediloL 25 MG TAB PO SCH (18:23)
[2019-10-30] MEDS: ATORVASTATIN 20 MG TAB PO SCH (20:35)
[2019-10-30 20:46] LABS: Urine Appearance CLEAR; Urine Bilirubin NEGATIVE (NEG); Urine Blood NEGATIVE (NEG); Urine Color YELLOW; Urine Glucose 3+ (NEG); Urine Protein NEGATIVE (NEG); Urine Specific Gravity 1.015 (1.005-1.030); Urine Urobilinogen 0.2 mg/dL (0.2-1.0); Urine pH 5.5 (5.0-7.0)
[2019-10-30 20:49] LABS: Urine Microscopic Reflex NO UMIC
[2019-10-30] MEDS ORDERED: INSULIN GLARGINE 100 UNITS/ML SQ SCH (21:00)
[2019-10-30] MEDS ORDERED: NA CHLORIDE 0.9% 100 ML ONE (21:24)
[2019-10-30] MEDS ORDERED: INSULIN -REGULAR HUMAN 50 UNIT/0.5 ML ML ONE (21:25)
[2019-10-31] MEDS ORDERED: D5 0.45 NS 1,000 ML IV ONE (01:56)
[2019-10-31] MEDS ORDERED: D5 0.45 NS 1,000 ML IV SCH (02:00)
[2019-10-31 05:29] LABS: Absolute Lymphocytes (CBC) 1.3 K/uL (0.7-4.9); Hematocrit 36.7 % (39.6-49.0); Lymphocytes % 33.1 % (15.3-44.8); MPV 9.6 fL (7.6-11.3); RBC Red Blood Cell Count 4.42 M/uL (4.33-5.43)
[2019-10-31] MEDS ORDERED: NA CHLORIDE 0.9% 100 ML ONE (05:47)
[2019-10-31] MEDS ORDERED: INSULIN -REGULAR HUMAN 50 UNIT/0.5 ML ML ONE (05:49)
[2019-10-31] MEDS: INSULIN -REGULAR HUMAN 100 UNIT in NA CHLORIDE 0.9% 100 ML IV SCH (05:53)
[2019-10-31] MEDS: carvediloL 25 MG TAB PO SCH ×2 (05:55→17:22)
[2019-10-31] MEDS: LEVOTHYROXINE SOD 0.05 MG TABLET PO SCH (05:55)
[2019-10-31 07:34] LABS: Phosphorus 2.8 mg/dL (2.5-4.9)
[2019-10-31 07:38] LABS: Potassium 3.5 mmol/L (3.5-5.1)
[2019-10-31 08:37] LABS: HDL Cholesterol 34 mg/dL (40-60); LDL, Direct 63 mg/dL (100-129)
[2019-10-31] MEDS ORDERED: SITAGLIPTIN PHOSPHATE 50 MG PO SCH (09:00)
[2019-10-31] MEDS: gemfibroziL 600 MG TAB PO SCH ×2 (09:37→20:59)
[2019-10-31] MEDS: ENOXAPARIN 40 MG/0.4 ML SQ SCH (09:37)
[2019-10-31] MEDS: LOSARTAN POTASSIUM 50 MG TABLET PO SCH (09:37)
[2019-10-31] MEDS: HYDRALAZINE HCL 25 MG TABLET PO SCH ×3 (09:37→20:59)
[2019-10-31] MEDS: AMLODIPINE 10 MG TAB PO SCH (09:37)
[2019-10-31] MEDS: hydroCHLOROthiazide 25 MG TAB PO SCH (09:37)
--- NOTE | 2019-10-31 10:46 | P.PN ---
Subjective Date of Service: 10/31/19 Primary Care Provider: Dr. Singer; Cardiology-Dr. Montano; Endocrinology-Dr. Vergara Chief Complaint: Hyperglycemia and hyperlipidemia Subjective: Improving, Doing well (No abdominal pain noted.) Physical Examination - Vital Signs Temperature: 98.5 F Blood Pressure: 181/87 Pulse: 70 Respirations: 17 Pulse Ox (%): 99 - Physical Exam General: Alert, In no apparent distress, Oriented x3, Cooperative HEENT: Atraumatic Neck: Supple Respiratory: Clear to auscultation bilaterally, Normal air movement Cardiovascular: Normal pulses, Regular rate/rhythm Gastrointestinal: Normal bowel sounds, Soft and benign, Non-distended, No ascites, No tenderness, No masses, No rebound, No guarding Musculoskeletal: No erythema, No tenderness, No warmth Integumentary: No tenderness/swelling, No erythema, No warmth, No cyanosis Neurological: Normal speech, Normal strength at 5/5 x4 extr, Normal tone, Normal affect - Studies Medications List Reviewed: Yes Assessment & Plan Discharge Plan: Home Plan to discharge in: 24 Hours Physician Review Additional Text: Impression: Diabetic ketoacidosis with history of diabetes mellitus type 2 with hyperglycemia non insulin-dependent Hypertension Hypertriglyceridemia Idioventricular rhythm Obesity, BMI 33 Plan: Diabetic ketoacidosis with history of diabetes mellitus type 2 with hyperglycemia non insulin-dependent: Diabetic ketoacidosis has resolved. Will transition off insulin drip to Lantus 10 units subcu twice daily. Will continue with sliding scale. A1c elevated at 12.3. Patient previously on Januvia. Medication will be adjusted accordingly. Patient will require follow up with Endocrinology as an outpatient. New medication includes Lantus. Will teach on diabetic diet. Patient to have cardiac stress test along with echo today. If unremarkable possible discharge as early as today. Hypertension: Continue with medication. Hypertriglyceridemia: Gemfibrozil started. Will add fish oil 2 g twice daily. Patient without pancreatitis. Patient will require strict diabetic control. Education on diet address. Idioventricular rhythm: Patient seen and evaluated by Cardiology. Cardiac stress test and echocardiogram ordered. Await findings. Obesity, BMI 33: Will teach on diabetic diet and lifestyle modification education. Time Spent Managing Pts Care (In Minutes): 55
--- NOTE | 2019-10-31 11:12 | ECHO ---
HEIGHT: 6 ft 1 in WEIGHT: 250 lb 3 oz DATE OF STUDY: 10/31/[address]: Rene Snell MD 2-DIMENSIONAL: YES M.MODE: YES DOPPLER: YES COLOR FLOW: YES TDS: NO PORTABLE: NO DEFINITY: NO BUBBLE STUDY: NO DIAGNOSIS: VENTRICUAR ARRHYTMIA CARDIAC HISTORY: CATHERIZATION: NO SURGERY: NO PROSTHETIC VALVE: NO PACEMAKER: NO MEASUREMENTS (cm) DIASTOLIC (NORMALS) SYSTOLIC (NORMALS) IVSd 1.1 (0.6-1.2) LA Diam 3.3 (1.9-4.0) LVEF 62% LVIDd 5.5 (3.5-5.7) LVIDs 3.6 (2.0-3.5) %FS 34% LVPWd 1.2 (0.6-1.2) Ao Diam 2.9 (2.0-3.7) 2 DIMENSIONAL ASSESSMENT: RIGHT ATRIUM: NORMAL LEFT ATRIUM: NORMAL RIGHT VENTRICLE: NORMAL LEFT VENTRICLE: NORMAL TRICUSPID VALVE: NORMAL MITRAL VALVE: NORMAL PULMONIC VALVE: NORMAL AORTIC VALVE: NORMAL PERICARDIAL EFFUSION: NONE AORTIC ROOT: NORMAL LEFT VENTRICULAR WALL MOTION: NORMAL. DOPPLER/COLOR FLOW: IMPAIRED LEFT VENTRICULAR RELAXATION COMMENTS: NORMAL 2D ECHO. IMAIRED LEFT VENTRICULAR RELAXATION, OTHERWISE NORMAL CARDIAC DOPPLER. TECHNOLOGIST: SAVI LUJAN
[2019-10-31] MEDS ORDERED: REGADENOSON 0.4 MG/5 ML SYR IV ONE (11:22)
--- NOTE | 2019-10-31 12:33 | RAD REPORT ---
EXAM DESCRIPTION: NM - Rest Stress Cardiac Imaging - 10/31/2019 12:07 pm CLINICAL HISTORY: CP Chest pain. COMPARISON: No comparisons TECHNIQUE: The patient was administered approximately 10mCi of Tc 99m Sestamibi prior to resting SPE CT imaging of the heart. The patient was then administered approximately 30 mCi of Tc 99m Sestamibi f ollowing exercise or pharmacologic stress. Multiplanar SPECT images were reviewed. FINDINGS: Diminished radiopharmaceutical accumulation is seen with stress along the LV septum. This likely represents a moderate sized area of mild stress-induced ischemia. Diminished radiopharmaceuti mariana accumulation along the inferior wall is also seen, however largely unchanged on rest and stress. The end diastolic volume is 144 ml, the end systolic volume is 82 ml, and the ejection fraction is 43 %. IMPRESSION: Mild stress-induced ischemia involving the LV septum suspected.
[2019-10-31] MEDS: DOCOSAHEXANOIC AC/EPA 1000 MG PO SCH ×2 (12:50→20:59)
[2019-10-31] MEDS: INSULIN -REGULAR HUMAN 50 UNIT/0.5 ML ML SQ SCH ×3 (12:51→21:01)
[2019-10-31] MEDS: INSULIN GLARGINE 100 UNITS/ML SQ SCH ×2 (12:52→21:00)
--- NOTE | 2019-10-31 12:54 | TREADPHA ---
DX: VENTRICULAR ARRHYTHMIA Date of Study: 10/31/2019 Ht: 6 1 Wt: 250 lb 3 oz Consulting Physician: FELIPE MEDICATIONS: NORVASC, LIPITOR, COREG, DEXTROSE, LOVENOX, LOPID, GULCAGEN, LANTUS, HUMALOG, APRESOLINE HISTORY: 60 YEAR OLD MALE WITH HISTORY OF HYPERTENSION, NON INSULIN DEPENDENT DIABETES MELLITUS PHYSICIAL EXAMINATION: RESTING B.P.: 186/99 RESTING H.R.: 90 RESTING EKG: LEFT VENTRICULAR HYPERTROPHY WITH REPOLARIZATION ABNORMALITY. PROTOCOL: DAGO CARDIOLITE EXERCISE TIME: 4:42 B.P. AT PEAK STRESS: 150/82 IMPRESSION: STOPPED FOR SHORTNESS OF BREATH AND FATIGUE. PATIENT UNABLE TO COMPLETE TEST. PREMATURE VENTRICULAR COMPLEXES AND PREMATURE ATRIAL COMPLEXES NOTED. TEST CHANGED TO LEXISCAN STRESS TEST. NON DIAGNOSTIC EXG WITH DAGO CARDIOLITE STRESS.
[2019-10-31] MEDS ORDERED: POTASSIUM CL SA 10 MEQ TAB PO ONE (14:00)
[2019-11-01] MEDS ORDERED: HYDRALAZINE HCL 20 MG/ML VIAL IV ONE (04:16)
[2019-11-01 05:03] LABS: Protime INR 0.91
[2019-11-01] MEDS ORDERED: LORazepam 2 MG/ML VIAL IV ONE (05:15)
[2019-11-01] MEDS: carvediloL 25 MG TAB PO SCH (05:51)
[2019-11-01] MEDS: LEVOTHYROXINE SOD 0.05 MG TABLET PO SCH (05:53)
[2019-11-01 06:05] LABS: Magnesium 2.1 mg/dL (1.8-2.4); Potassium 3.9 mmol/L (3.5-5.1); Thyroid Stimulating Hormone 2.85 uIU/mL (0.360-3.740)
[2019-11-01] MEDS: INSULIN -REGULAR HUMAN 50 UNIT/0.5 ML ML SQ SCH ×2 (07:30→11:30)
[2019-11-01] MEDS: hydroCHLOROthiazide 25 MG TAB PO SCH (08:25)
[2019-11-01] MEDS: gemfibroziL 600 MG TAB PO SCH (08:26)
[2019-11-01] MEDS: AMLODIPINE 10 MG TAB PO SCH (08:26)
[2019-11-01] MEDS: HYDRALAZINE HCL 25 MG TABLET PO SCH ×2 (08:27→13:51)
[2019-11-01] MEDS: DOCOSAHEXANOIC AC/EPA 1000 MG PO SCH (08:27)
[2019-11-01] MEDS: INSULIN GLARGINE 100 UNITS/ML SQ SCH (08:28)
[2019-11-01] MEDS ORDERED: LOSARTAN POTASSIUM 50 MG TABLET PO SCH (09:00)
[2019-11-01] MEDS ORDERED: MIDAZOLAM HCL 2 MG/2 ML INJ ONE ×2 (10:34→10:56)
[2019-11-01] MEDS ORDERED: ATROPINE SULF 1 MG/10 ML SYR IV ONE (10:36)
[2019-11-01] MEDS ORDERED: FENTANYL CITR 100 MCG/2 ML ONE (10:36)
[2019-11-01] MEDS ORDERED: NA CHLORIDE 0.9% 0 ML ONE (10:37)
[2019-11-01] MEDS ORDERED: HEPA 1000U/500MLS 1,000 UNIT/500 ML BAG IV ONE (10:37)
[2019-11-01] MEDS ORDERED: LIDOCAINE 1% MPF 30 ML VIAL ONE (10:37)
[2019-11-01] MEDS ORDERED: NA CHLORIDE 0.9% 500 ML ONE (10:39)
[2019-11-01] MEDS ORDERED: METHYLPREDNISOLONE 125 MG INJ ONE (10:50)
[2019-11-01] MEDS ORDERED: INSULIN -REGULAR HUMAN 50 UNIT/0.5 ML ML ONE ×2 (11:06→12:33)
--- NOTE | 2019-11-01 11:46 | P.DS ---
Admission Date: 10/28/19 Discharge Date: 11/01/19 Primary Care Provider: Dr. Singer; Cardiology-Dr. Montano; Endocrinology-Dr. Vergara Disposition: ROUTINE DISCHARGE Discharge Condition: GOOD Reason for Admission: Hyperglycemia and hyperlipidemia Consultations: Cardiology-Dr. Snell Procedures: ECHO: EF 62% LEFT VENTRICULAR WALL MOTION: NORMAL. DOPPLER/COLOR FLOW: IMPAIRED LEFT VENTRICULAR RELAXATION COMMENTS: NORMAL 2D ECHO. IMAIRED LEFT VENTRICULAR RELAXATION, OTHERWISE NORMAL CARDIAC DOPPLER. Heart Catheterization: Normal coronaries. No intervention required. Medical Problem List: Diabetic ketoacidosis with history of diabetes mellitus type 2 with hyperglycemia non insulin-dependent Hypertension Hypothyroidism Idioventricular rhythm Obesity, BMI 33 Brief History of Present Illness: 68-year-old male presented to emergency room with weakness. Patient also had hyperglycemia. Patient was admitted for further evaluation. Hospital Course: Patient presented with weakness and hyperglycemia secondary to diabetic ketoacidosis. Patient with history of diabetes mellitus type 2. Patient was treated for DKA. A1c elevated at 12.3. Medications have been adjusted. Patient plans to see Endocrinology as an outpatient. At discharge patient will continue with Lantus 15 units subcu twice daily. Patient will also continue with prior medication of Januvia 50 mg daily. Recommend to maintain blood sugars less 140 fasting and less than 200 after meals. Further adjustment can be done by his PCP. Patient would benefit with follow up with Endocrinology in outpatient to further monitor. Patient was evaluated by cardiology for idioventricular rhythm. Cardiology recommended cardiac stress test and echocardiogram. Echocardiogram unremarkable. Cardiac stress test was abnormal. Heart catheterization was recommended. Heart catheterization showed normal coronaries. No further intervention was required. At discharge patient will continue with aspirin 81 mg daily. Recommend follow up with cardiology as an outpatient to further monitor. Patient with hypertension. Adjustment in medication was required. Clonidine was discontinued. At discharge patient will continue with Norvasc 10 mg daily, carvedilol 25 mg twice daily, hydralazine 100 mg 3 times a day, hydrochlorothiazide 25 mg daily and losartan 50 mg 1 pill twice daily. Recommend blood pressure to remain less than 150/80. Further adjustment may be required. This can be further addressed by his PCP. Patient with hypothyroidism. At discharge she will continue with levothyroxine 50 mcg daily. Vital Signs/Physical Exam: Temp Pulse Resp BP Pulse Ox 97.4 F 73 16 156/84 H 98 11/01/19 08:00 11/01/19 08:26 11/01/19 08:00 11/01/19 08:26 11/01/19 08:00 General: Alert, In no apparent distress, Oriented x3, Cooperative HEENT: Atraumatic Neck: Supple Respiratory: Clear to auscultation bilaterally, Normal air movement Cardiovascular: Normal pulses, Regular rate/rhythm Gastrointestinal: Normal bowel sounds, Soft and benign, Non-distended, No tenderness, No masses, No rebound, No guarding Musculoskeletal: No erythema, No tenderness, No warmth Integumentary: No tenderness/swelling, No erythema, No cyanosis Neurological: Normal speech, Normal strength at 5/5 x4 extr, Normal tone, Normal affect Laboratory Data at Discharge: WBC 3.8 K/uL (4.3-10.9) L 10/31/19 04:55 Hgb 12.6 g/dL (13.6-17.9) L 10/31/19 04:55 Hct 36.7 % (39.6-49.0) L 10/31/19 04:55 Plt Count 146 K/uL (152-406) L 10/31/19 04:55 PT 10.8 SECONDS (9.5-12.5) 11/01/19 04:45 INR 0.91 11/01/19 04:45 APTT 33.8 SECONDS (24.3-36.9) 11/01/19 04:45 Sodium 136 mmol/L (136-145) 11/01/19 04:45 Potassium 3.9 mmol/L (3.5-5.1) 11/01/19 04:45 BUN 17 mg/dL (7-18) 11/01/19 04:45 Creatinine 1.39 mg/dL (0.55-1.3) H 11/01/19 04:45 Glucose 356 mg/dL (74-106) H 11/01/19 04:45 Phosphorus 2.8 mg/dL (2.5-4.9) 10/31/19 05:52 Magnesium 2.1 mg/dL (1.8-2.4) 11/01/19 04:45 Total Bilirubin 0.4 mg/dL (0.2-1.0) 10/28/19 11:26 AST 15 U/L (15-37) 01/24/20 11:26 ALT 37 U/L (12-78) 10/28/19 11:26 Alkaline Phosphatase 72 U/L (45-117) 10/28/19 11:26 Troponin I < 0.02 ng/mL (0.0-0.045) 10/30/19 02:01 Triglycerides 1396 mg/dL (<150) H 10/31/19 05:52 Cholesterol 246 mg/dL (<200) H 10/31/19 05:52 LDL Cholesterol Direct 63 mg/dL (100-129) L 10/31/19 05:52 HDL Cholesterol 34 mg/dL (40-60) L 10/31/19 05:52 Cholesterol/HDL Ratio 7.24 10/31/19 05:52 Lipase 410 U/L (73-393) H 10/28/19 11:26 Home Medications: Amlodipine [Norvasc*] 10 mg PO DAILY 10/28/19 Cholecalciferol (Vitamin D3) [Vitamin D3] 125 mcg PO DAILY 10/28/19 Hydralazine [Apresoline*] 100 mg PO TID 10/28/19 Levothyroxine [Synthroid*] 1 tab PO [id number] 10/28/19 Losartan Potassium [Cozaar*] 50 mg PO DAILY 10/28/19 Magnesium Oxide 400 mg PO DAILY 10/28/19 [place]-3/Dha/Epa/Fish Oil [Fish Oil 500 mg Softgel] 1 cap PO DAILY 10/28/19 Sitagliptin Phosphate [Januvia] 1 tab PO DAILY 10/28/19 carvediloL [Carvedilol] 1 tab PO BID 6AM 6PM 10/28/19 hydroCHLOROthiazide [Hydrodiuril*] 1 tab PO DAILY 10/29/19 Insulin Glargine,Hum.rec.anlog [Lantus Solostar] 15 unit SQ BID #1 packet Losartan Potassium [Cozaar*] 50 mg PO BID #60 tablet 11/01/19 New Medications: Insulin Glargine,Hum.rec.anlog [Lantus Solostar] 15 unit SQ BID #1 packet Losartan Potassium [Cozaar*] 50 mg PO BID #60 tablet Patient Discharge Instructions: 1. Recommend follow up with primary care physician to further address and monitor. 2. Patient presented with weakness and hyperglycemia secondary to diabetic ketoacidosis. Patient with history of diabetes mellitus type 2. Patient was treated for DKA. A1c elevated at 12.3. Medications have been adjusted. Patient plans to see Endocrinology as an outpatient. At discharge patient will continue with Lantus 15 units subcu twice daily. Patient will also continue with prior medication of Januvia 50 mg daily. Recommend to maintain blood sugars less 140 fasting and less than 200 after meals. Further adjustment can be done by his PCP. Patient would benefit with follow up with Endocrinology in outpatient to further monitor. 3. Patient was evaluated by cardiology for idioventricular rhythm. Cardiology recommended cardiac stress test and echocardiogram. Echocardiogram unremarkable. Cardiac stress test was abnormal. Heart catheterization was recommended. Heart catheterization showed normal coronaries. No further intervention was required. At discharge patient will continue with aspirin 81 mg daily. Recommend follow up with cardiology as an outpatient to further monitor. 4. Patient with hypertension. Adjustment in medication was required. Clonidine was discontinued. At discharge patient will continue with Norvasc 10 mg daily, carvedilol 25 mg twice daily, hydralazine 100 mg 3 times a day, hydrochlorothiazide 25 mg daily and losartan 50 mg 1 pill twice daily. Recommend blood pressure to remain less than 150/80. Further adjustment may be required. This can be further addressed by his PCP. 5. Patient with hypothyroidism. At discharge he will continue with levothyroxine 50 mcg daily. Diet: ADA Activity: Ad abdullahi Time spent managing pt's care (in minutes): 55
[2019-11-01 12:35] VITALS: O2SAT 98
[2019-11-01 17:19] VITALS: BP 151/87; TEMP 97.3
[2019-11-01] MEDS ORDERED: INSULIN GLARGINE 100 UNITS/ML SQ SCH (21:00)
--- NOTE | 2019-11-01 22:19 | OP ---
Surgeon: Mehdi Aldrich MD Subpoena Server: Carol Ann Carrillo. Patient will go home today. The case was discussed with Dr. Garcia. Second Admitting Physician: Francisco Lloyd MD. Indications: For shortness of breath, chest pain, diabetes, poorly controlled. Had a stress test ye that was abnormal, set up for a heart catheterization today as an inpatient. 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 Given Versed for IV sedation. He was given Solu-Medrol for allergies for the iod ine and he was given insulin subcu regular for elevated blood glucose. A 6-Chinese sheath introduced in the right common femoral artery, normal angiography there. Angio-Seal used to close the case. Ju demandmartins catheter left and right used to do the coronary injection respectively. He had a normal circum flex. He was left dominant. He had a small normal RCA, had minimal plaquing and LAD was very large. No complications. Blood Loss: 5 mL. Postoperative Diagnosis: Minimal coronary artery disease. Plan: Plan is for medical therapy. Anesthesia: Total conscious sedation was 30 minutes. JOAN/DIANNAL Voice ID: [id number] Report ID: [id number]
== END 2019-11-01 14:48 | disposition home or self-care (01) | DRG 638 ==
LOC: ER 10:25 → ERHOLD 13:47 → 2ND 10-29 12:10 → 3RD-ICU 10-30 14:15 → 4TH 10-31 15:50
PROVIDERS: ADMIT Internal Medicine Sleep Medicine; ATTEND Hospitalist
PROC: B201YZZ Plain Radiography of Multiple Coronary Arteries using Other Contrast (ICD-10-PCS; principal; 2019-11-01)
DX: E11.10 Type 2 diabetes mellitus with ketoacidosis without coma (principal); I44.2 Atrioventricular block, complete; N17.9 Acute kidney failure, unspecified; I10 Essential (primary) hypertension; E03.9 Hypothyroidism, unspecified; E66.9 Obesity, unspecified; Z68.33 Body mass index [BMI] 33.0-33.9, adult; E11.65 Type 2 diabetes mellitus with hyperglycemia; R94.39 Abnormal result of other cardiovascular function study; E78.1 Pure hyperglyceridemia; Z96.651 Presence of right artificial knee joint; I25.10 Atherosclerotic heart disease of native coronary artery without angina pectoris
CPT/HCPCS: 36415; 78452; 80048; 80061; 80076; 81003; 82010; 82550; 82553; 82947; 83036; 83690; 83735; 84100; 84439; 84443; 84484; 85025; 85610; 85730; 87040; 87804; 93005; 93017; 93306; 93454; 96361; 96365; 96366; 99285; A9500; C1760; C1893; J0360; J0583; J1650; J1815; J2250; J2785; J2930; J3010; J7030; J7040; J7799

== ENCOUNTER 2024-09-17 09:32 | Emergency (ER) | payer OTHER, MEDICARE ==
--- OUTSIDE RECORDS SUMMARY | 2024-09-17 09:34 | XMS REPORT | Continuity of Care Document ---
Author Name Unknown Address [address] [place] [address] [facility] thconnect Address [address] [place] [address] Care Team Providers Care Keypunch Operator Name Role Phone DESIRAE SERRANO Primary Care Physician TANK Espinoza Attending Clinician Unavailable Tank Mart DO Attending Clinician JITENDRA TENA Attending Clinician Unavailable TANK MART Admitting Clinician Unavailable Payers Payer Name Policy Type Policy Number Effective Date Expirati on Date Source MEDICARE PART A \T\ B [id number] 2015 00:00:00 [facility] MEDICARE SUPPLEMENT [id number] 2020 00:00:00 Problems Condition Name Condition Details Condition Category Status Onset Date Resolution Date Last Treatment Date Treating Clinician Comments Source Pain of left shoulder joint Pain of Left Shoulder Joint Problem Active 2023-10 00:00: 00 [facility] Arthritis of left acromiocla vicular joint Arthritis of Left Acromiocla vicular Joint Problem Active 2023-10 00:00: 00 [facility] Allergies, Adverse Reactions, Alerts Allergy Name Allergy Type Status Severity Reaction(s) Onset Date Inactive Date Treating Clinician Comments Source NO KNOWN ALLERGIE S Drug Class Active [facility] Social History Social Habit Start Date Stop Date Quantity Comments Source Sexual orientation U [facility] Alcoholic beverage intake 2016-03-31 00:00:00 2016-03-31 00:00:00 0 /d [facility] History of Social function 2016-03-25 00:00:00 2016-03-25 00:00:00 [facility] Sex assigned at 1950 00:00:00 1950 00:00:00 [facility] Smoking Status Start Date Stop Date Source Never Smoker [facility] Medications Ordered Medication Name Filled Medication Name Start Date Stop Date Current Medication? Ordering Clinician Indication Dosage Frequency Signature (SIG) Comments Components Source losartan-hy drochloroth iazide (HYZAAR) 100-25 mg per tablet 03-26 12:11: 26 Yes 1{tbl} Take 1 tablet by mouth daily. [facility] KCL (KLOR-CON M20) 20 mEq tablet 03-26 12:11: 26 Yes 20meq Take 20 mEq by mouth daily. [facility] hydralAZINE (APRESOLINE ) 50 mg tablet 03-26 12:11: 26 Yes 50mg Take 50 mg by mouth 3 (three) times daily. [facility] aspirin 81 mg EC tablet 03-26 12:11: 26 Yes 81mg Take 81 mg by mouth daily. [facility] carvedilol (COREG) 12.5 mg tablet 03-26 12:11: 26 Yes 12.5mg Take 12.5 mg by mouth 2 (two) times daily with meals. [facility] hydrochloro thiazide 25 mg tablet hydrochloro thiazide 25 mg tablet No hydrochlor othiazide 25 mg tablet [facility] Jardiance 25 mg tablet Jardiance 25 mg tablet No Jardiance 25 mg tablet [facility] levothyroxi ne 50 mcg tablet levothyroxi ne 50 mcg tablet No levothyrox ine 50 mcg tablet [facility] losartan 100 mg tablet losartan 100 mg tablet No losartan 100 mg tablet [facility] metformin 500 mg tablet metformin 500 mg tablet No metformin 500 mg tablet [facility] Mobic 15 mg tablet Take 1 tablet every day by oral route with meal(s) for 21 days. Mobic 15 mg tablet Take 1 tablet every day by oral route with meal(s) for 21 days. No 1 Q1D Mobic 15 mg tablet Take 1 tablet every day by oral route with meal(s) for 21 days. [facility] amlodipine 10 mg tablet amlodipine 10 mg tablet No amlodipine 10 mg tablet [facility] atorvastati n 20 mg tablet atorvastati n 20 mg tablet No atorvastat in 20 mg tablet [facility] carvedilol 25 mg tablet carvedilol 25 mg tablet No carvedilol 25 mg tablet [facility] clonidine HCl 0.2 mg tablet clonidine HCl 0.2 mg tablet No clonidine HCl 0.2 mg tablet [facility] fenofibrate nanocrystal lized 48 mg tablet fenofibrate nanocrystal lized 48 mg tablet No fenofibrat e nanocrysta llized 48 mg tablet [facility] hydralazine 100 mg tablet hydralazine 100 mg tablet No hydralazin e 100 mg tablet [facility] Immunizations Ordered Immunization Name Filled Immunization Name Date Status Comments Source SARS-COV-2 COVID-19 PFIZER VACCINE Unknown Completed [facility] Vital Signs Vital Name Observation Time Observation Value Comments S ource Height 2024-08-23 00:00:00 73 [in_i] [facility] BMI (Body Mass Index) 2024-08-23 00:00:00 30.6 kg/m2 [facility] Body Weight 2024-08-23 00:00:00 232 [lb_av] [facility] Procedures Procedure Date / Time Performed Performing Clinician Source XR, shoulder, 2 or more view 2024-08-23 00:00:00 [facility] MRI, shoulder, w/o contrast 2024-08-23 00:00:00 [facility] US RETROPERITONEAL COMPLETE 2024-02-24 14:20:49 Tank Mart [facility] Knee Replacement [facility] Encounters Start Date/Time End Date/Time Encounter Type Admission Type Attending Clinicians Care Facility Care Department Encounter ID Source 2024-08-23 00:00:00 2024-08-23 00:00:00 Onel Caballero MD: [id number] [place] [address] , Ph. [phone] [place] [facility] [place] [id number] [facility] 2024-02-24 08:52:56 2024-02-24 23:59:00 Outpatient Marcos TANK MART [facility] [id number] [facility] 2024-02-24 08:52:56 2024-02-24 23:59:00 Hospital Encounter TimoseveroNéstorio Lucy [facility] [id number] [facility] 2020-11-29 08:00:00 2020-11-29 08:00:00 Outpatient JITENDRA HERNANDEZ [facility] [id number] [facility] 2020-11-29 08:00:00 2020-11-29 08:00:00 Outpatient JITENDRA HERNANDEZ [facility] [id number] [facility] 2020-11-23 08:00:00 2020-11-23 08:00:00 Outpatient JITENDRA HERNANDEZ [facility] [id number] [facility] 2020-11-23 08:00:00 2020-11-23 08:00:00 Outpatient JITENDRA HERNANDEZ [facility] [id number] [facility] 2020-11-02 08:20:00 2020-11-02 08:20:00 Outpatient JITENDRA HERNANDEZ [facility] [id number] [facility] Results Test Description Test Time Test Comments Results Result Comments Source US RETROPERITONEAL COMPLETE 14:27:07 HISTORY: Stage IIIa chronic kidney disease. TECHNIQUE: Both kidneys are evaluated in multiple planes with the patientin different positions. FINDINGS: RIGHT KIDNEY: Measures 10.5 x 6.3 x 7.7 cm with corticalthickness measuring up to 10 mm. No hydronephrosis or perinephric fluidcollection detected. LEFT KIDNEY: Measures 11.1 x 5.1 x 6.4 cm in size with cortical thicknessmeasuring up to 12 mm. ?No hydronephrosis or perinephric fluid collection.18 mm anechoic lesion along the lateral surface of left kidney isconsistent with simple renal cyst. Quick look at the urinary bladder showed no gross pathology. Amount ofurine accumulated before patient voided was 350 mL and approximately 63 mLretained urine immediately after patient voided. CONCLUSIONS: Small simple left renal cyst and incomplete emptying of theurinary bladder noted, otherwise normal study. [facility]
[2024-09-17] MEDS ORDERED: NA CHLORIDE 0.9% 1,000 ML ONE ×2 (09:55→11:55)
[2024-09-17 10:11] LABS: Absolute Eosinophils 0.1 K/uL (0-0.5); Absolute Lymphocytes (CBC) 1.2 K/uL (0.7-4.9); Absolute Monocytes 0.4 K/uL (0.1-1.3); Absolute Neutrophil 4.5 K/uL (1.8-8.0); Basophils % 0.7 % (0-1.3); Eosinophils % 1.3 % (0-4.4); Hematocrit 41.4 % (39.6-49.0); Hemoglobin 13.2 g/dL (13.6-17.9); MCH 27.6 pg (27.0-35.0); MCHC 31.9 g/dL (32.0-36.0); MCV 86.5 fL (80-100); Monocytes % 6.2 % (3.3-12.3); Neutrophils % 72.8 % (41.7-73.7); Platelets 190 thou/uL (152-406); RBC Red Blood Cell Count 4.79 M/uL (4.33-5.43); Red Cell Distribution Width 15.7 % (12.1-15.2)
[2024-09-17 10:31] LABS: Albumin 3.6 g/dL (3.4-5.0); Albumin/Globulin Ratio 0.9 (1.1-1.8); Anion Gap 8.3 mEq/L (5.0-15.0); Bilirubin Total 0.3 mg/dL (0.2-1.0); Globulin 3.9 g/dL (2.3-3.5); Potassium 3.3 mEq/L (3.5-5.1); Protein, Total 7.5 g/dL (6.4-8.2)
--- NOTE | 2024-09-17 10:45 | RAD REPORT ---
EXAMINATION: CT ABDOMEN AND PELVIS WITHOUT CONTRAST CLINICAL INDICATION: diarrhea TECHNIQUE: CT abdomen and pelvis was performed, without IV contrast, as per department protocol. Axia l, sagittal and coronal reconstructions were obtained. One or more of the following dose reduction techniques were used: Automated exposure control, adjustment of the mA and kV according to the patien t size, and iterative reconstruction. Unless otherwise specified, incidental findings do not require dedicated imaging follow-up. COMPARISON: No prior exam. FINDINGS: The lack of intravenous contrast limits the sensitivity of this exam for evaluation of solid visceral organs, vascular structures, and retroperitoneum. LOWER CHEST: The visualized lung bases are clear. LIVER:Mild fatty liver is present. No focal lesion or biliary dilatation is seen. Grossly unremarka ble gallbladder. SPLEEN: Normal size. No focal lesion. PANCREAS: No mass, ductal dilation, or thea-pancreatic fluid. ADRENALS: Mild adreniform thickening bilaterally. KIDNEYS AND URETERS: Normal size and contour. No hydronephrosis. Benign 16 mm posterior superior left renal cyst. URINARY BLADDER: Normal contour. GASTROINTESTINAL TRACT: No evidence of bowel obstruction, significant free fluid, free air or abscess . Fluid-filled colon is seen. APPENDIX: Normal appendix. LYMPH NODES: No lymphadenopathy. MUSCULOSKELETAL: Moderate lower lumbar spondylosis. ADDITIONAL FINDINGS: None. IMPRESSION: No acute or concerning abnormalities in the abdomen or pelvis, with evaluation limited by lack of IV contrast. Fluid-filled colon noted which can indicate diarrheal state.
[2024-09-17 11:15] LABS: Specific Gravity 1.016 (1.005-1.030); Sqamous Epithelial None Seen /HPF (None Seen); Urine Bacteria None Seen /HPF (<20); Urine Bilirubin NEGATIVE (Negative); Urine Blood Negative (Negative); Urine Clarity Clear (Clear); Urine Color Light-Yellow (Yellow); Urine Culture Reflex Order NOT NEEDED; Urine Glucose 4+ (Over) (Negative); Urine Ketones NEGATIVE (Negative); Urine Microscopic Reflex YN ORDER UMIC; Urine Nitrite NEGATIVE (Negative); Urine Protein NEGATIVE (Negative); Urine RBC None Seen /HPF (None Seen); Urine Urobilinogen Normal (Normal); Urine WBC <5 /HPF (<5); Urine pH 5.5 (5.0-7.0)
[2024-09-17] MEDS ORDERED: LOPERAMIDE HCL 2 MG CAPSULE ONE (11:54)
[2024-09-17] MEDS ORDERED: POTASSIUM 25 MEQ EFFERV TAB ONE (11:55)
[2024-09-17 12:22] LABS: C.diff Antigen/Toxin Ag neg : Tox neg (NEG : NEG); CDIFF INTERNAL NEG CONTROL White Background (WHITE BKGD); STOOL CONSISTENCY Liquid/Semi-Solid
--- NOTE | 2024-09-17 12:46 | EDPHYS ---
Physician Documentation [facility] Name: Reid Mccormick Age: 73 yrs Sex: Male : 1950 Arrival Date: 09/17/2024 Time: 09:32 Bed 8 Private MD: ED Physician Mario Fontenot HPI: 09/17 09:54 This 73 yrs old Black Male presents to ER via Ambulatory with complaints of Diarrhea. sb4 09:54 The patient presents to the emergency department with diarrhea. Onset: The sb4 symptoms/episode began/occurred 5 day(s) ago. Possible causes: unknown. The symptoms are aggravated by nothing. The symptoms are alleviated by OTC meds. Associated signs and symptoms: The patient has no apparent associated signs or symptoms. The patient has not experienced similar symptoms in the past. The patient has not recently seen a physician. diarrhea x 5 days. no n/v or abd pain. has been taking imodium with some improvement. no fevers, no blood in the stool. Historical: - Allergies: 09:50 Iodine; ko1 - PMHx: 09:50 Diabetes - NIDDM; Hypertension; Hypothyroidism; ko1 - PSHx: 09:50 None; ko1 - Immunization history:: Adult Immunizations up to date. - Infectious Disease History:: Denies. - Social history:: Smoking status: Patient denies any tobacco usage or history of. ROS: 09:58 Constitutional: Negative for fever, chills, and weight loss, sb4 09:58 Abdomen/GI: Positive for diarrhea, 09:58 All other systems are negative, Exam: 09:58 Constitutional: This is a well developed, well nourished patient who is awake, alert, sb4 and in no acute distress. Head/Face: Normocephalic, atraumatic. Eyes: Extra-ocular motions intact. Periorbital areas with no swelling, redness, or edema. ENT: Mucous membranes moist. Cardiovascular: Regular rate and rhythm with a normal S1 and S2. Respiratory: No increased work of breathing, no retractions or nasal flaring. Abdomen/GI: Soft, non-tender, no distension. Skin: Warm, dry with normal turgor. Normal color with no rashes, no lesions, and no evidence of cellulitis. 09:58 Abdomen/GI: Bowel sounds: normal, in all quadrants, Vital Signs: 09:48 BP 128 / 69; Pulse 54; Resp 16; Temp 97.4; Pulse Ox 99% ; ko1 12:00 BP 134 / 72; Pulse 62; Resp 16; Pulse Ox 100% ; ko1 12:52 BP 126 / 80; Pulse 60; Resp 15; Pulse Ox 99% ; ko1 MDM: 09:38 Medical Screening Exam initiated sb4 09:58 Differential diagnosis: diverticulitis, colitis, IBS, gastroenteritis. sb4 12:44 Data reviewed: vital signs, nurses notes, lab test result(s), radiologic studies, and sb4 as a result, I will discharge patient. Counseling: I had a detailed discussion with the patient and/or guardian regarding the historical points, exam findings, and any diagnostic results supporting the discharge/admit diagnosis, lab results, radiology results, the need for outpatient follow up, a choir leader, to return to the emergency department if symptoms worsen or persist or if there are any questions or concerns that arise at home. 09/17 09:48 Order name: CBC with Diff; Complete Time: 10:17 sb4 09/17 09:48 Order name: CMP; Complete Time: 10:32 sb4 09/17 09:48 Order name: Lipase; Complete Time: 10:32 sb4 09/17 09:48 Order name: Urinalysis w/ reflexes; Complete Time: 11:16 sb4 09/17 09:48 Order name: Fecal Leukocyte Stain sb4 09/17 09:48 Order name: Ova And Parasites sb4 09/17 09:48 Order name: Rotavirus Antigen; Complete Time: 12:15 sb4 09/17 09:48 Order name: Stool Culture sb4 09/17 09:48 Order name: CDIFF; Complete Time: 12:28 sb4 09/17 10:18 Order name: CT Abd/Pelvis - Without Contrast; Complete Time: 10:53 sb4 09/17 09:48 Order name: IV Saline Lock; Complete Time: 10:05 sb4 09/17 09:48 Order name: Labs collected and sent; Complete Time: 10:05 sb4 Administered Medications: 10:05 Drug: NS 0.9% IV 1000 ml IV at 1 bolus Per protocol; to be given as a bolus over 60 ko1 minutes Route: IV; Rate: 1 bolus; Site: right antecubital; 11:06 Follow up: Response: No adverse reaction; IV Status: Completed infusion; IV Intake: ko1 1000ml 11:57 Drug: NS 0.9% IV 1000 ml IV at 1000 ml once; to be given as a bolus over 60 minutes ko1 Route: IV; Rate: 1000 ml; Site: right antecubital; 12:46 Follow up: Response: No adverse reaction; IV Status: Completed infusion; IV Intake: ko1 1000ml 11:57 Drug: Loperamide PO 4 mg PO once Route: PO; ko1 12:30 Follow up: Response: No adverse reaction ko1 11:57 Drug: Potassium PO Effervescent Tablet 25 mEq PO once; dissolve in 4 ounces of water or ko1 juice Route: PO; 12:30 Follow up: Response: No adverse reaction ko1 Disposition Summary: 09/17/24 12:45 Discharge Ordered Notes: Location: Home sb4 Problem: an ongoing problem sb4 Symptoms: have improved sb4 Condition: Stable sb4 Diagnosis - Diarrhea, unspecified sb4 - Dehydration sb4 Followup: sb4 - With: Erick Casillas MD - When: As needed - Reason: Further diagnostic work-up, Recheck today's complaints, Re-evaluation by your physician Discharge Instructions: - Discharge Summary Sheet sb4 - Food Choices to Help Relieve Diarrhea, Adult sb4 Forms: - Antibiotic Education sb4 - Patient Portal Instructions sb4 - Leadership Thank You Letter sb4 Prescriptions: - Flagyl 500 mg Oral Tablet - take 1 tablet ORAL route every 12 hours for 7 days; 14 tablet; Refills: 0, sb4 Product Selection Permitted Signatures: Dispatcher [facility] Yamileth Fang RN RN ko1 Jen Amaya PA-C PA-C sb4 Corrections: (The following items were deleted from the chart) 09:49 09:49 CBC+H.LAB.BRZ ordered. EDMS EDMS 09:49 09:49 COMPREHENSIVE METABOLIC PANEL+C.LAB.BRZ ordered. EDMS EDMS 09:49 09:49 LIPASE+C.LAB.BRZ ordered. EDMS EDMS 09:49 09:49 Urinalysis+U.LAB.BRZ ordered. EDMS EDMS 09:49 09:49 Fecal Leukocyte Stain+BA.LAB.BRZ ordered. EDMS EDMS 09:49 09:49 Ova and Parasites+MR.LAB.BRZ ordered. EDMS EDMS 09:49 09:49 Rotavirus Antigen+BA.LAB.BRZ ordered. EDMS EDMS 09:49 09:49 Stool Culture+BA.LAB.BRZ ordered. EDMS EDMS :49 09:49 C.difficile GDH Ag \T\ Toxin AB+LAB.BRZ ordered. EDMS EDMS 09:49 09:49 Abdomen Pelvis W Con+CT.RAD.BRZ ordered. EDMS EDMS
--- NOTE | 2024-09-17 12:46 | ER ---
Nurse's Notes [facility] Name: Reid Mccormick Age: 73 yrs Sex: Male : 1950 Arrival Date: 09/17/2024 Time: 09:32 Bed 8 Private MD: Diagnosis: Diarrhea, unspecified;Dehydration Presentation: 09/17 09:48 Chief complaint: Patient states: diarrhea since Thursday, took some Imodium with a little ko1 relief but then it came back. Coronavirus screen: At this time, the client does not indicate any symptoms associated with coronavirus-19. Ebola Screen: No symptoms or risks identified at this time. Initial Sepsis Screen: Does the patient meet any 2 criteria? No. Patient's initial sepsis screen is negative. Does the patient have a suspected source of infection? No. Patient's initial sepsis screen is negative. Risk Assessment: Do you want to hurt yourself or someone else? Patient reports no desire to harm self or others. Onset of symptoms is unknown. 09:48 Method Of Arrival: Ambulatory ko1 09:48 Acuity: VINCENT 3 ko1 Triage Assessment: 09:50 General: Appears in no apparent distress. Behavior is calm, cooperative, appropriate ko1 for age. Pain: Denies pain. GI: Reports diarrhea. Historical: - Allergies: 09:50 Iodine; ko1 - PMHx: 09:50 Diabetes - NIDDM; Hypertension; Hypothyroidism; ko1 - PSHx: 09:50 None; ko1 - Immunization history:: Adult Immunizations up to date. - Infectious Disease History:: Denies. - Social history:: Smoking status: Patient denies any tobacco usage or history of. Screenin:07 [facility] ED Fall Risk Assessment (Adult) History of falling in the last 3 months, ko1 including since admission No falls in past 3 months (0 pts) Confusion or Disorientation No (0 pts) Intoxicated or Sedated No (0 pts) Impaired Gait No (0 pts) Mobility Assist Device Used No (0 pt) Altered Elimination No (0 pt) Score/Fall Risk Level 0 - 2 = Low Risk Oriented to surroundings, Maintained a safe environment, Educated pt \T\ family on fall prevention, incl call for assistance when getting out of bed, Assessed \T\ reinforced patient's understanding of fall precautions, Hourly rounding (assess needs \T\ fall precautionary measures) done. Abuse screen: Denies threats or abuse. Denies injuries from another. Nutritional screening: No deficits noted. Tuberculosis screening: No symptoms or risk factors identified. Assessment: 12:43 Neuro: No deficits noted. Cardiovascular: No deficits noted. Respiratory: No deficits ko1 noted. GI: Reports diarrhea. : No deficits noted. EENT: No deficits noted. Derm: No deficits noted. Musculoskeletal: No deficits noted. Vital Signs: 09:48 BP 128 / 69; Pulse 54; Resp 16; Temp 97.4; Pulse Ox 99% ; ko1 12:00 BP 134 / 72; Pulse 62; Resp 16; Pulse Ox 100% ; ko1 12:52 BP 126 / 80; Pulse 60; Resp 15; Pulse Ox 99% ; ko1 ED Course: 09:37 Patient arrived in ED. al6 09:38 Jen Amaya PA-C is PHCP. sb4 09:38 Mario Fontenot MD is Attending Physician. sb4 09:48 Yamileth Gaines, PRITESH is Primary Nurse. ko1 09:49 Triage completed. ko1 09:50 Arm band placed on right wrist. Patient placed in an exam room, on a stretcher, on ko1 pulse oximetry, Patient notified of wait time. 10:00 Initial lab(s) drawn, by me, sent to lab. Inserted saline lock: 20 gauge in right ko1 antecubital area, using aseptic technique. Blood collected. Flushed with 10 mL NS. 10:05 CBC with Diff Sent. ko1 10:05 CMP Sent. ko1 10:05 Lipase Sent. ko1 10:35 CT Abd/Pelvis - Without Contrast In Process Unspecified. EDMS 11:05 No provider procedures requiring assistance completed. Urine collected: clean catch ko1 specimen, clear. 11:06 CDIFF Sent. ko1 11:06 Fecal Leukocyte Stain Sent. ko1 11:06 Ova And Parasites Sent. ko1 11:06 Rotavirus Antigen Sent. ko1 11:06 Stool Culture Sent. ko1 11:06 Urinalysis w/ reflexes Sent. ko1 11:07 Patient has correct armband on for positive identification. Allergy band placed. Bed in ko1 low position. Call light in reach. Side rails up X 1. Provided Education on: labs. Pulse ox on. NIBP on. Door closed. Noise minimized. Lights dimmed. Assisted to bathroom. 12:45 Erick Casillas MD is Referral Physician. sb4 12:52 IV discontinued, intact, bleeding controlled, No redness/swelling at site. Pressure ko1 dressing applied. Administered Medications: 10:05 Drug: NS 0.9% IV 1000 ml IV at 1 bolus Per protocol; to be given as a bolus over 60 ko1 minutes Route: IV; Rate: 1 bolus; Site: right antecubital; 11:06 Follow up: Response: No adverse reaction; IV Status: Completed infusion; IV Intake: ko1 1000ml 11:57 Drug: NS 0.9% IV 1000 ml IV at 1000 ml once; to be given as a bolus over 60 minutes ko1 Route: IV; Rate: 1000 ml; Site: right antecubital; 12:46 Follow up: Response: No adverse reaction; IV Status: Completed infusion; IV Intake: ko1 1000ml 11:57 Drug: Loperamide PO 4 mg PO once Route: PO; ko1 12:30 Follow up: Response: No adverse reaction ko1 11:57 Drug: Potassium PO Effervescent Tablet 25 mEq PO once; dissolve in 4 ounces of water or ko1 juice Route: PO; 12:30 Follow up: Response: No adverse reaction ko1 Medication: 11:07 VIS not applicable for this client. ko1 Intake: 11:06 IV: 1000ml; Total: 1000ml. ko1 12:46 IV: 1000ml; Total: 2000ml. ko1 Outcome: 12:45 Discharge ordered by . sb4 13:02 Discharged to home ambulatory, ko1 13:02 Condition: stable 13:02 Discharge instructions given to patient, Instructed on discharge instructions, follow up and referral plans. medication usage, Demonstrated understanding of instructions, follow-up care, medications, Prescriptions given X 1, 13:02 Patient left the ED. ko1 Signatures: Dispatcher [employer] EDMS Yamileth Gaines RN RN [email or web address] Jen Amaya PA-C PACherelleC sb4 Jeannie Patterson
[2024-09-17 13:32] VITALS: TEMP 97.4
[2024-09-17 13:44] VITALS: BP 126/80; O2SAT 99
== END 2024-09-17 13:02 | disposition home or self-care (01) ==
LOC: ER 09:32
DX: E86.0 Dehydration (principal)
CPT/HCPCS: 96361; 87045; 85025; 81001; 36415; 89055; 87177; 87046; 87209; 87324; 83690; 80053; 87425; 74176; 96360; 99284; J7030 ×2